=== PATIENT | male | born 1965 | race Two or more races ===

== ENCOUNTER 2017-10-26 08:23 | Day surgery (SDC) | payer BC ==
[~2017-10-26 08:23] MED LIST: Buffered Lidocaine 0.9% SYRIN* 5 ML/SYR SYRINGE INTRADERM ONE; Dexamethasone IV* 4 MG/ML 1 ML (4 MG) IV SLOW PU ONE; Famotidine IV* 10 MG/ML 2 ML (20 mg) IV ONE
[2017-10-26] MEDS ORDERED: Dexamethasone IV* 4 MG/ML 1 ML (4 MG) ONE (08:27)
[2017-10-26] MEDS ORDERED: ceFAZolin 2 GM PREMIX (*) 2 GM/50 ML BAG IVPB ONE (08:27)
[2017-10-26] MEDS ORDERED: Famotidine IV* 10 MG/ML 2 ML (20 mg) ONE (08:27)
[2017-10-26] MEDS ORDERED: fentaNYL* 50 MCG/ML 2 ML VIAL (100 MCG VIAL) ONE (09:19)
[2017-10-26] MEDS ORDERED: Midazolam* 1 MG/ML 2 ML VIAL (2 MG) ONE (09:19)
[2017-10-26] MEDS ORDERED: Lidocaine 2% PF* 10 ML AMP ONE ×2 (09:32→09:35)
[2017-10-26] MEDS ORDERED: Bupivacaine 0.5% SDV PF* 30ML VIAL ONE (09:32)
[2017-10-26] MEDS ORDERED: Lidocaine 2% PF * 5 ML VIAL ONE (09:35)
[2017-10-26] MEDS ORDERED: Propofol* 10 MG/ML 20 ML BTL IV PUSH ONE (09:35)
[2017-10-26] MEDS ORDERED: Ondansetron INJ* 2 MG/ML VIAL IV PRN (10:13)
[2017-10-26] MEDS ORDERED: Naloxone* 0.4 MG/ML 1 ML VIAL IV PRN (10:13)
[2017-10-26 10:50] VITALS: BP 116/80
--- NOTE | 2017-10-26 11:53 | OP ---
Operative Report - Blank - Operative Report Date of Operation: 10/26/17 Note: PATIENT: Olivier Rizzo DATE OF : 1965 DATE OF SURGERY: 10/26/2017 SURGEON: Matthew Banegas MD MOTION PICTURE OPERATOR: MANJEET Green, whos assistance was necessary for positioning, retraction, help with instrumentation, and closure. ANESTHESIOLOGIST: Dr. Campos PREOPERATIVE DIAGNOSIS: Left foot great toe ganglion cyst POSTOPERATIVE DIAGNOSIS: Left foot great toe ganglion cyst OPERATION: Left foot great toe ganglion cyst excision ANESTHESIA: MAC with local anesthesia provided by surgeon IMPLANTS: none TOURNIQUET TIME: Less than 30 minutes with an ankle Esmarch tourniquet SPECIMENS: ganglion cyst to pathology ESTIMATED BLOOD LOSS: minimal COMPLICATIONS: none STATUS: Stable from the operating room to the recovery room and then home. INDICATIONS FOR PROCEDURE: Olivier has had persistent problems with a hallux ganglion cyst. Both operative and non operative treatment alternatives were reviewed. Further, the nature and risks of surgery were reviewed in careful detail, in the office as well as the pre-operative holding area. Our discussions regarding the risks of surgery included, but were not limited to, infection, wound problems, nerve injury, neuroma, RSD, persistent symptoms, blood clot, recurrence, failure of the surgery, and even the remote chance of catastrophic complication, including loss of limb. DESCRIPTION OF PROCEDURE: The patient was seen in the preoperative holding unit and informed written consent was obtained. The appropriate extremity was marked. The patient was then brought to the operating room and carefully positioned on the operating room table. Anesthesia was induced. All bony prominences were padded with great care. A chlorhexidine based pre-scrub was performed followed by a chloraprep prep and drape in standard sterile fashion. A surgical safety pause was then conducted in which we confirmed the appropriate patient, extremity, planned procedure, availability of equipment, indication and administration of prophylactic antibiotics, and DVT prophylaxis in the form of a compression boot on the non-surgical extremity. We began with Esmarch exsanguination of the limb and placement of an ankle Esmarch tourniquet. An incision was made over the cyst and then careful blunt dissection was made to get down to the deep layer overlying the cyst. Blunt dissection was then utilized to define the cyst. The cyst was then amputated at its stalk excised. Cautery was used to ablate the cysts stalk. No bony prominences were palpated at the joint which would be amenable to saucerization. The tourniquet was then let down and hemostasis achieved. The toe was pink, well-perfused and with excellent capillary refill. At this point, we irrigated copiously and then closed in layers meticulously utilizing 3-0 Monocryl and 3-0 nylon for the skin. A sterile dressing was then applied. The patient was then awakened from anesthesia and transferred to the recovery room in stable condition. There were no complications. All needle and sponge counts were correct at the end of the case. ATTESTATION: I attest I was present and scrubbed and performed the critical portions of the procedure myself. POSTOPERATIVE PLAN: She will follow-up in 2 weeks for likely suture removal.
== END 2017-10-26 10:50 | disposition home or self-care (01) ==
LOC: OR 08:23
PROVIDERS: ATTEND Orthopaedic Surgery
DX: M67.472 Ganglion, left ankle and foot (principal)
CPT/HCPCS: 88304; J0690; J1100; J2001; J2250; J2704; J3010

== ENCOUNTER 2017-11-24 17:37 | Emergency (ER) | payer BC ==
[2017-11-24 17:52] VITALS: BP 117/69
--- NOTE | 2017-11-24 18:22 | RAD ---
Indication: Wrist pain 3 views of the wrist demonstrates lucency in the distal radius consistent with nondisplaced fracture. Remainder of the carpal bones are unremarkable. IMPRESSION: Nondisplaced fracture of the distal radius.
--- NOTE | 2017-11-24 18:23 | ED ---
Upper Extremity Pain - HPI Summary HPI Summary: 52-year-old male presents with right wrist pain for the past days. He states he fell on his right wrist on Monday. States pain with movement and is on radial aspect of wrist. Denies any numbness or tingling. He has never injured this area before. 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 He has been taking ibuprofen for his symptoms. - History of Current Complaint Chief Complaint: UCUpperExtremity Stated Complaint: wrist injury Time Seen by Provider: 11/24/17 18:01 - Allergies/Home Medications Allergies/Adverse Reactions: Allergies Allergy/AdvReac Type Severity Reaction Status Date / Time No Known Allergies Allergy Verified 11/24/17 17:51 Home Medications: Home Medications Ibuprofen TAB* [Advil TAB*] 200 mg PO ONCE PRN 11/24/17 [History Confirmed 11/24] Melatonin 11/24/17 [History] PMH/Surg Hx/FS Hx/Imm Hx Endocrine/Hematology History: Denies: Hx Anticoagulant Therapy Cardiovascular History: Reports: Hx Hypertension - slight, no meds Denies: Other Cardiovascular Problems/Disorders Respiratory History: Denies: Other Respiratory Problems/Disorders GI History: Denies: Other GI Disorders Musculoskeletal History: Denies: Other Musculoskeletal History Sensory History: Reports: Hx Contacts or Glasses - glasses Denies: Hx Hearing Aid Opthamlomology History: Reports: Hx Contacts or Glasses - glasses Neurological History: Denies: Other Neuro Impairments/Disorders - Surgical History Surgery Procedure, Year, and Place: TOE SURGERY (CYST REMOVED) Hx Anesthesia Reactions: No Infectious Disease History: No Infectious Disease History: Denies: Traveled Outside the [place] in Last 30 Days - Family History Known Family History: Positive: Hypertension - Social History Alcohol Use: Daily Alcohol Amount: 1 BEER per day Substance Use Type: Reports: None Smoking Status (MU): Never Smoked Tobacco Review of Systems Negative: Fever Negative: Chest Pain Negative: Shortness Of Breath Positive: Myalgia - right wrist pain All Other Systems Reviewed And Are Negative: Yes Physical Exam Triage Information Reviewed: Yes Vital Signs On Initial Exam: Initial Vitals Temp Pulse Resp BP Pulse Ox 97.1 F 74 16 117/69 98 11/24/17 17:46 11/24/17 17:46 11/24/17 17:46 11/24/17 17:46 11/24/17 17:46 Vital Signs Reviewed: Yes Appearance: Positive: Well-Appearing Skin: Positive: Warm, Dry Head/Face: Positive: Normal Head/Face Inspection Eyes: Positive: Normal, Conjunctiva Clear Respiratory/Lung Sounds: Positive: Clear to Auscultation, Breath Sounds Present Cardiovascular: Positive: Normal, RRR Musculoskeletal: Positive: Limited @ - right wrist, Edema Right - wrist, Other - tenderness over Radial aspect of right wrist, good pulses, cap refill less than 2 seconds, Neurological: Positive: Normal Psychiatric: Positive: Normal Procedures - Splinting Location: wrist right Hand-Made Type: orthoglass Splint: volar Pre-Proc Neuro Vasc Exam: normal Post-Proc Neuro Vasc Exam: normal Diagnostics - Vital Signs Vital Signs Temp Pulse Resp BP Pulse Ox 11/24/17 17:46 97.1 F 74 16 117/69 98 - Laboratory Lab Statement: Any lab studies that have been ordered have been reviewed, and results considered in the medical decision making process. - Radiology wrist Xray Interpretation: Positive (See Comments) - IMPRESSION: Nondisplaced fracture of the distal radius. Radiology Interpretation Completed By: Radiologist Course/Dx - Course Course Of Treatment: 52-year-old male presents with right wrist pain for the past days. He states he fell on his right wrist on Monday. States pain with movement and is on radial aspect of wrist. Denies any numbness or tingling. He has never injured this area before. 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 He has been taking ibuprofen for his symptoms. xray shows radial fracture. placed in volvar splint. patient understand and agrees with plan. - Diagnoses Differential Diagnosis/HQI/PQRI: Positive: Fracture (Closed), Strain, Sprain Provider Diagnoses: Right wrist fracture Discharge - Sign-Out/Discharge Documenting (check all that apply): Discharge/Admit/Transfer - Discharge Plan Condition: Good Disposition: HOME Patient Education Materials: Wrist Fracture in Adults (ED) Referrals: Rekha Jiménez MD [Primary Care Provider] - Sony Duffy MD [Medical Doctor] - Additional Instructions: Keep splint on area and keep dry Call ortho office Monday to set up appointment for follow up Use ibuprofen or Tylenol for pain every 6 hours as needed for pain Ice, elevate Return to ED if develop any new or worsening symptoms - Billing Disposition and Condition Condition: GOOD Disposition: HOME
== END 2017-11-24 18:49 | disposition home or self-care (01) ==
LOC: UCEAST 17:37
DX: S52.501A Unspecified fracture of the lower end of right radius, initial encounter for closed fracture (principal); W19.XXXA Unspecified fall, initial encounter; Y93.9 Activity, unspecified; Y92.9 Unspecified place or not applicable; I10 Essential (primary) hypertension
CPT/HCPCS: 25600; 99211; G0463